=== PATIENT | female | born 1955 | race Caucasian/White ===

== ENCOUNTER 2019-11-01 09:01 | Day surgery (SDC) | payer MEDICAID ==
[~2019-11-01] VITALS: Ht 177.8 cm; Wt 97.7 kg
[2019-11-01 09:10] VITALS: BP 129/66
[2019-11-01] MEDS ORDERED: fentaNYL/PF 50MCG/1 ML 2ML syringe ONE (09:11)
[2019-11-01] MEDS ORDERED: MIDAZolam 5mg/5ml vial ONE ×2 (09:11→09:12)
[2019-11-01] MEDS ORDERED: LIDOcaine Viscous 15ml cup ONE (09:12)
[2019-11-01] MEDS ORDERED: LEVO75TA7 PO (09:42)
[2019-11-01] MEDS ORDERED: ROSU20TA2 PO (09:43)
[2019-11-01] MEDS ORDERED: WARF10TA50 PO (09:44)
[2019-11-01] MEDS ORDERED: WARF-55 PO (09:45)
[2019-11-01] MEDS ORDERED: ENOX40SY7 SUBCUT (09:46)
[2019-11-01 10:58] VITALS: BP 101/55
[2019-11-01 11:08] VITALS: BP 104/61
[2019-11-01 11:18] VITALS: BP 108/62
[2019-11-01 11:28] VITALS: BP 109/59
== END 2019-11-01 11:45 | disposition home or self-care (01) ==
LOC: GI LAB 09:01
PROVIDERS: ATTEND Internal Medicine Gastroenterology
DX: R19.7 Diarrhea, unspecified (principal); K52.832 Lymphocytic colitis; R12 Heartburn; K44.9 Diaphragmatic hernia without obstruction or gangrene; K31.89 Other diseases of stomach and duodenum; K29.50 Unspecified chronic gastritis without bleeding; K20.8 Other esophagitis
CPT/HCPCS: 43239; 45380; 99152; 99153; J2250; J3010; J7040; A4620